=== PATIENT | female | born 1990 | race Caucasian/White ===

== ENCOUNTER 2019-09-28 12:05 | Inpatient (IN) | payer SELFPAY ==
[2019-09-28] MEDS ORDERED: Sodium Chloride 0.9% 10 ML Syringe FLUSH PRN (12:38)
[2019-09-28] MEDS ORDERED: Ondansetron 4 MG/2 ML SDV IVPUSH PRN ×2 (12:38→12:52)
[2019-09-28] MEDS ORDERED: Oxytocin 10 Units/1 ML SDV IM PRN (12:38)
[2019-09-28] MEDS ORDERED: Nalbuphine 10 MG/1 ML Vial IVPUSH PRN (12:38)
--- NOTE | 2019-09-28 12:41 | PCM.LDHP ---
L&D History of Present Illness - General Date of Service: 09/28/19 Admit Problem/Dx: Patient Status Order with Admit Dx/Problem 09/28/19 12:38 Patient Status [ADT] Routine Admission Diagnosis/Problem Admission Diagnosis/Problem Spontaneous rupture of amniotic membranes Source of Information: Patient History Limitations: Reports: No Limitations - History of Present Illness Introduction:: Patient is a 29 y/o at 41 2/7 wks who presents with SROM. Occurred at about 1000 this AM. Contractions started afterwards. Contractions mild- moderate overall. - Related Data Allergies/Adverse Reactions: Allergies Allergy/AdvReac Type Severity Reaction Status Date / Time No Known Allergies Allergy Verified 09/28/19 14:36 Past Medical History [employer] History: Reports: : 1 Para: 0 LMP (Approximate): - Past Surgical History HEENT Surgical History: Reports: Oral Surgery (wisdom tooth extraction) Social & Family History - Tobacco Use Smoking Status *Q: Never Smoker - Alcohol Use Alcohol Use History: No - Recreational Drug Use Recreational Drug Use: No H&P Review of Systems - Review of Systems: Review Of Systems: See Below General: Reports: No Symptoms Pulmonary: Reports: No Symptoms Cardiovascular: Reports: No Symptoms Gastrointestinal: Reports: No Symptoms Genitourinary: Reports: No Symptoms Musculoskeletal: Reports: No Symptoms Psychiatric: Reports: No Symptoms Neurological: Reports: No Symptoms L&D Exam - Exam Exam: See Below - OB Specific Contraction Intensity: Moderate Movement: Active Heart Tones: Present Heart Tones per Min: 135 Heart Rate (FHR) Variability: Moderate (6-25 bmp) Presentation: Vertex - Exam General: Alert, Oriented, Cooperative Lungs: Clear to Auscultation, Normal Respiratory Effort Cardiovascular: Regular Rate, Regular Rhythm GI/Abdominal Exam: Soft, Non-Tender Genitourinary: Normal external exam Extremities: Normal Inspection Skin: Warm, Dry, Intact - Patient Data Result Diagrams: 09/28/19 12:50 - Problem List (1) 41 weeks gestation of SNOMED Code(s): 12794557 ICD Code: Z3A.41 - 41 WEEKS GESTATION OF Status: Acute Current Visit: Yes (2) Spontaneous rupture of membranes SNOMED Code(s): 019927821 ICD Code: AHF0458 - Status: Acute Current Visit: Yes (3) Rubella non-immune status, antepartum SNOMED Code(s): 211282115 ICD Code: O99.89 - OTH DISEASES AND CONDITIONS COMPL PREG/CHLDBRTH; Z28.3 - UNDERIMMUNIZATION STATUS Status: Acute Current Visit: Yes Problem List Initiated/Reviewed/Updated: Yes Orders Last 24hrs: Active Orders 24 hr Category Date Time Status Patient Status [ADT] Routine ADT 09/28/19 12:38 Ordered Activity as Tolerated [RC] PFP Care 09/28/19 12:38 Ordered Communication Order [RC] ASDIRECTED Care 09/28/19 12:38 Ordered Heart Tones [RC] ASDIRECTED Care 09/28/19 12:39 Ordered Non Stress Test [RC] PER UNIT ROUTINE Care 09/28/19 12:38 Ordered Notify Provider [RC] PFP Care 09/28/19 12:38 Ordered Notify Provider [RC] PRN Care 09/28/19 12:38 Ordered Peripheral IV Care [RC] . DIRECTED Care 09/28/19 12:39 Ordered Vital Signs [RC] PER UNIT ROUTINE Care 09/28/19 12:38 Ordered CBC W/O DIFF,HEMOGRAM [HEME] Routine Lab 09/28/19 12:38 Ordered RAPID PLASMA REAGIN,RPR [CHEM] Routine Lab 09/28/19 12:38 Ordered TYPE AND SCREEN [BBK] Routine Lab 09/28/19 12:38 Ordered Lactated Ringers [Ringers, Lactated] 1,000 ml Med 09/28/19 12:45 Ordered IV ASDIRECTED Nalbuphine [Nubain] Med 09/28/19 12:38 Ordered 10 mg IVPUSH Q2H PRN Ondansetron [Zofran] Med 09/28/19 12:38 Ordered 4 mg IVPUSH Q4H PRN Oxytocin [Pitocin] Med 09/28/19 12:38 Ordered 10 unit IM ONETIME PRN Oxytocin/Lactated Ringers [Pitocin in LR 10 Units/1,000 Med 09/28/19 12:45 Ordered ML] 10 unit in 1,000 ml IV .CONTINUOUS Sodium Chloride 0.9% [Saline Flush] Med 09/28/19 12:38 Ordered 10 ml FLUSH ASDIRECTED PRN Electronic Heart Tones Ext w TOCO [WOMSER] Oth 09/28/19 12:38 Ordered Routine Electronic Heart Tones Internal [WOMSER] Per Unit Oth 09/28/19 12:38 Ordered Routine Peripheral IV Insertion Adult [OM.PC] Routine Oth 09/28/19 12:38 Ordered Resuscitation Status Routine Resus Stat 09/28/19 12:38 Ordered Assessment/Plan Comment:: * Labs * GBS negative * Pain management per patient preference * Anticipate
[2019-09-28] MEDS ORDERED: Lactated Ringers 1,000 ML IV SCH (12:45)
[2019-09-28] MEDS ORDERED: Oxytocin/Lactated Ringers 10 UNIT/1,000 ML BAG IV SCH (12:45)
[2019-09-28] MEDS ORDERED: fentaNYL 100 MCG/2 ML SDV EPIDUR PRN (12:52)
[2019-09-28] MEDS ORDERED: ePHEDrine 50 MG/ML SDV IVPUSH PRN (12:52)
[2019-09-28] MEDS ORDERED: fentaNYL/Bupivacaine/NS 2 MCG-0.125% 250 ML EPIDUR PRN (12:52)
--- NOTE | 2019-09-28 12:55 | PCM.PREANE ---
Preanesthetic Assessment - Anesthesia/Transfusion/Family Hx Anesthesia History: Prior Anesthesia Reaction Type of Anesthesia Reaction: Excessive Nausea/Vomiting Family History of Anesthesia Reaction: No Transfusion History: No Prior Transfusion(s) Intubation History: Unknown - Review of Systems General: No Symptoms Pulmonary: No Symptoms Cardiovascular: No Symptoms, Palpitations Gastrointestinal: No Symptoms Neurological: No Symptoms Other: Reports: None, Sinus Problem (sinus congestion) - Physical Assessment NPO Status Date: 09/28/19 NPO Status Time: 10:00 Vital Signs: Temp: 97.3F RR: 18 Sat: 100% HR: 83 BP: 124/65 Height: 1.73 m Weight: 76.657 kg ASA Class: 2 Mental Status: Alert & Oriented x3 Airway Class: Mallampati = 2 Dentition: Reports: Normal Dentition, Caries Thyro-Mental Finger Breadths: 3 Mouth Opening Finger Breadths: 3 ROM/Head Extension: Full Lungs: Clear to Auscultation, Normal Respiratory Effort Cardiovascular: Regular Rate, Regular Rhythm, No Murmurs - Lab Values: All labs reviewed and noted and within acceptable ranges to proceed with epidural if desired. - Anesthesia Plan Pre-Op Medication Ordered: None - Acknowledgements Anesthesia Type Planned: Spinal, Epidural Pt an Appropriate Candidate for the Planned Anesthesia: Yes Alternatives and Risks of Anesthesia Discussed w Pt/Guardian: Yes Pt/Guardian Understands and Agrees with Anesthesia Plan: Yes PreAnesthesia Questionnaire - CURRENT (IN HOUSE) MEDS Current Meds: Current Medications Ephedrine Sulfate (Ephedrine Sulfate) 5 mg IVPUSH ASDIRECTED PRN PRN Reason: Hypotension Fentanyl (Sublimaze) 100 mcg EPIDUR Q3H PRN PRN Reason: Pain Fentanyl/Bupivacaine HCl (Fentanyl/Bupivacaine/Ns 2 Mcg-0.125% 250 Ml) ml EPIDUR CONTINUOUS PRN PRN Reason: Pain Lactated Ringer's (Ringers, Lactated) 1,000 mls @ 100 mls/hr IV ASDIRECTED KIMBER Oxytocin/Lactated Ringer's (Pitocin In Lr 10 Units/1,000 Ml) 10 unit in 1,000 mls @ 500 mls/hr IV .CONTINUOUS KIMBER Phenylephrine HCl 1 mg/ Sodium (Chloride) 10.1 mls @ 1 mls/sec IV TITRATE KIMBER; Protocol Nalbuphine HCl (Nubain) 10 mg IVPUSH Q2H PRN PRN Reason: Pain Ondansetron HCl (Zofran) 4 mg IVPUSH Q4H PRN PRN Reason: Nausea/Vomiting Ondansetron HCl (Zofran) 4 mg IVPUSH ONETIME PRN PRN Reason: Nausea/Vomiting Oxytocin (Pitocin) 10 unit IM ONETIME PRN PRN Reason: Bleeding Sodium Chloride (Saline Flush) 10 ml FLUSH ASDIRECTED PRN PRN Reason: Keep Vein Open
[2019-09-28] MEDS ORDERED: Phenylephrine 1 MG in Sodium Chloride 0.9% 10 ML IV SCH (13:00)
--- NOTE | 2019-09-29 05:35 | PCM.PNLD ---
Labor Progress Note - VS & Meds Vital Signs: Last Vital Signs Temp 36.3 C 09/28/19 12:24 Pulse 83 09/28/19 12:24 Resp 18 09/28/19 12:24 BP 124/65 09/28/19 12:24 Pulse Ox 100 09/28/19 12:24 Active Medications: Current Medications Ephedrine Sulfate (Ephedrine Sulfate) 5 mg IVPUSH ASDIRECTED PRN PRN Reason: Hypotension Fentanyl (Sublimaze) 100 mcg EPIDUR Q3H PRN PRN Reason: Pain Fentanyl/Bupivacaine HCl (Fentanyl/Bupivacaine/Ns 2 Mcg-0.125% 250 Ml) 250 ml EPIDUR CONTINUOUS PRN PRN Reason: Pain Lactated Ringer's (Ringers, Lactated) 1,000 mls @ 100 mls/hr IV ASDIRECTED KIMBER Oxytocin/Lactated Ringer's (Pitocin In Lr 10 Units/1,000 Ml) 10 unit in 1,000 mls @ 500 mls/hr IV .CONTINUOUS KIMBER Phenylephrine HCl 1 mg/ Sodium (Chloride) 10.1 mls @ 1 mls/sec IV TITRATE KIMBER; Protocol Nalbuphine HCl (Nubain) 10 mg IVPUSH Q2H PRN PRN Reason: Pain Ondansetron HCl (Zofran) 4 mg IVPUSH Q4H PRN PRN Reason: Nausea/Vomiting Ondansetron HCl (Zofran) 4 mg IVPUSH ONETIME PRN PRN Reason: Nausea/Vomiting Oxytocin (Pitocin) 10 unit IM ONETIME PRN PRN Reason: Bleeding Sodium Chloride (Saline Flush) 10 ml FLUSH ASDIRECTED PRN PRN Reason: Keep Vein Open - Uterine Contractions Uterine Monitoring Mode: External [place] Contraction Intensity: Moderate - Monitoring Monitor Mode: External Ultrasound Heart Rate (FHR) Baseline: 140 Heart Rate (FHR) Variability: Moderate (6-25 bmp) Accelerations: Present, 15x15 Decelerations: Late (one isolated) Strip Review: Category II - Vaginal Exam Dilation (cm): 7-8 Effacement (Percent): 80 Station: 1 Cervical Position: Anterior - Labor Progress (Free Text) Labor Progress: doing well. Continues to make good change. Continue present management
[2019-09-29] MEDS ORDERED: Oxytocin/Lactated Ringers 10 UNIT/1,000 ML BAG IV SCH (14:15)
[2019-09-29] MEDS ORDERED: Lidocaine 1% 50 ML MDV ONE (19:32)
[2019-09-29] MEDS ORDERED: Lidocaine 1% 20 ML MDV INJECT ONE (21:00)
--- NOTE | 2019-09-29 21:44 | PCM.DEL ---
L & D Note - General Info Date of Service: 09/29/19 - Delivery Note Labor: Augmented by Oxytocin Delivery Outcome: Livebirth Delivery Method: Spontaneous Vaginal Delivery-Single Delivery Mode: Spontaneous Presentation: Right Occiput Anterior (CRYSTAL) Nuchal Cord: None Anesthesia Type: None Amniotic Fluid Description: Meconium Stained Episiotomy Type: None Laceration: 2nd Degree, Perineal Suture type: Vicryl Suture size: 2-0 Placenta: Intact, Spontaneous Cord: 3 Vessels Estimated Blood Loss: 200 Resuscitation Needed: Yes [place]: Bulb Syringe, Stimulated, Warmed, [place] Used, Warmer Used Score 1 min: 8 Score 5 min: 9 Delivery Comments (Free Text/Narrative):: Patient found to be complete and began pushing. With maternal pushing effort head delivered from CRYSTAL presentation. No nuchal cord present. With gentle downward traction shoulders and body delivered. Infant placed on maternal abdomen. Cord clamped and cut. Baby handed to awaiting bus operator. Cord blood obtained. Placenta allowed time to separate and expelled intact. Inspection of the perineum showed a 2nd degree laceration which was repaired with a 2-0 vicryl in the typical fashion. - General Info Date of Service: 09/29/19 - Patient Data Vitals - Most Recent: Last Vital Signs Temp 36.3 C 09/28/19 12:24 Pulse 83 09/28/19 12:24 Resp 18 09/28/19 12:24 BP 124/65 09/28/19 12:24 Pulse Ox 100 09/28/19 12:24 Weight - Most Recent: 76.657 kg - Problem List & Annotations (1) 41 weeks gestation of SNOMED Code(s): 09679810 Code(s): Z3A.41 - 41 WEEKS GESTATION OF Status: Acute Current Visit: Yes (2) Spontaneous rupture of membranes SNOMED Code(s): 493338534 Code(s): SPK1851 - Status: Acute Current Visit: Yes (3) Rubella non-immune status, antepartum SNOMED Code(s): 215889554 Code(s): O99.89 - OTH DISEASES AND CONDITIONS COMPL PREG/CHLDBRTH; Z28.3 - UNDERIMMUNIZATION STATUS Status: Acute Current Visit: Yes (4) Vaginal delivery SNOMED Code(s): 183963544 Code(s): O80 - ENCOUNTER FOR FULL-TERM UNCOMPLICATED DELIVERY Status: Acute Current Visit: Yes - Problem List Review Problem List Initiated/Reviewed/Updated: Yes - My Orders Last 24 Hours: My Active Orders 09/29/19 14:15 Oxytocin/Lactated Ringers [Pitocin in LR 10 Units/1,000 ML] 10 unit in 1,000 ml IV TITRATE - Assessment Assessment:: 29 y/o G1 now P1001 PPD#0 from at 41 3/7 wks - Plan Plan:: * Routine cares * Encourage breast feeding * Discharge home in 2 days
[2019-09-29] MEDS ORDERED: Acetaminophen 325 MG Tab PO PRN (23:13)
[2019-09-29] MEDS ORDERED: Witch Hazel Medicated Pads 40/Jar TOP PRN (23:13)
[2019-09-29] MEDS ORDERED: Docusate Sodium 100 MG Cap PO PRN (23:13)
[2019-09-29] MEDS ORDERED: Benzocaine/Menthol 20%-0.5% Spray 56 GM Canister TOP PRN (23:13)
[2019-09-29] MEDS ORDERED: Ibuprofen 600 MG Tab PO PRN (23:13)
--- NOTE | 2019-09-30 08:35 | PCM.PNPP ---
- General Info Date of Service: 09/30/19 Functional Status: Reports: Pain Controlled, Tolerating Diet, Ambulating, Urinating - Review of Systems General: Reports: No Symptoms Pulmonary: Reports: No Symptoms Cardiovascular: Reports: No Symptoms Gastrointestinal: Reports: Other (groin pain) Genitourinary: Reports: No Symptoms Musculoskeletal: Reports: No Symptoms Neurological: Reports: No Symptoms - Patient Data Vital Signs - Most Recent: Last Vital Signs Temp 37.1 C 09/30/19 03:31 Pulse 64 09/30/19 03:31 Resp 14 09/30/19 03:31 BP 109/84 09/30/19 03:31 Pulse Ox 98 09/30/19 03:31 Weight - Most Recent: 76.657 kg I&O - Last 24 Hours: Intake & Output 09/29/19 09/30/19 09/30/19 22:59 06:59 14:59 Intake Total 0 1150 Balance 0 1150 Med Orders - Current: Current Medications Acetaminophen (Tylenol) 650 mg PO Q4H PRN PRN Reason: mild pain or fever Benzocaine/Menthol (Dermoplast Pain Relief [place]) 0 gm TOP ASDIRECTED PRN PRN Reason: Perineal Comfort Measure Last Admin: 09/30/19 00:10 Dose: 1 can Docusate Sodium (Colace) 100 mg PO BID PRN PRN Reason: Constipation Ibuprofen (Motrin) 600 mg PO Q6H PRN PRN Reason: Mild pain or fever Witch Abena (Tucks) 1 pad TOP ASDIRECTED PRN PRN Reason: Perineal Comfort Measure Last Admin: 09/30/19 00:10 Dose: 1 container Discontinued Medications Ephedrine Sulfate (Ephedrine Sulfate) 5 mg IVPUSH ASDIRECTED PRN PRN Reason: Hypotension Fentanyl (Sublimaze) 100 mcg EPIDUR Q3H PRN PRN Reason: Pain Fentanyl/Bupivacaine HCl (Fentanyl/Bupivacaine/Ns 2 Mcg-0.125% 250 Ml) 250 ml EPIDUR CONTINUOUS PRN PRN Reason: Pain Lactated Ringer's (Ringers, Lactated) 1,000 mls @ 100 mls/hr IV ASDIRECTED KIMBER Last Admin: 09/29/19 14:17 Dose: 100 mls/hr Oxytocin/Lactated Ringer's (Pitocin In Lr 10 Units/1,000 Ml) 10 unit in 1,000 mls @ 500 mls/hr IV .CONTINUOUS KIMBER Phenylephrine HCl 1 mg/ Sodium (Chloride) 10.1 mls @ 1 mls/sec IV TITRATE KIMBER; Protocol Oxytocin/Lactated Ringer's (Pitocin In Lr 10 Units/1,000 Ml) 10 unit in 1,000 mls @ 6 mls/hr IV TITRATE KIMBER; Protocol Last Titration: 09/29/19 20:27 Dose: 12 munits/min, 72 mls/hr Lidocaine HCl (Xylocaine 1%) Confirm Administered Dose 50 ml .ROUTE .STK-MED ONE Stop: 09/29/19 19:33 Last Admin: 09/29/19 21:02 Dose: 50 ml Lidocaine HCl (Xylocaine 1%) 50 ml INJECT ONETIME ONE Stop: 09/29/19 21:01 Last Admin: 09/30/19 04:38 Dose: Not Given Nalbuphine HCl (Nubain) 10 mg IVPUSH Q2H PRN PRN Reason: Pain Ondansetron HCl (Zofran) 4 mg IVPUSH Q4H PRN PRN Reason: Nausea/Vomiting Ondansetron HCl (Zofran) 4 mg IVPUSH ONETIME PRN PRN Reason: Nausea/Vomiting Oxytocin (Pitocin) 10 unit IM ONETIME PRN PRN Reason: Bleeding Last Admin: 09/29/19 21:06 Dose: 10 unit Sodium Chloride (Saline Flush) 10 ml FLUSH ASDIRECTED PRN PRN Reason: Keep Vein Open - Interaction Infant Disposition, : [place] in Room with Family Interaction: Holding Infant Feeding: Attempted ; Nursed Fair/Poor Support Person: - Recovery Exam Fundal Tone: Firms with Massage Fundal Level: 2 Fingerbreadths Below Umbilicus Fundal Placement: Midline Lochia Amount: Small, Moderate Lochia Color: Rubra/Red Perineum Description: Edematous, Other (see below) Other Perinuem Description: 2nd degree laceration with repair Episiotomy/Laceration: Approximated Bladder Status: Voiding Urinary Elimination: Voided - Exam General: Alert, Oriented, Cooperative GI/Abdominal Exam: Soft, Non-Tender Extremities: Normal Inspection Skin: Warm, Dry, Intact - Problem List & Annotations (1) 41 weeks gestation of SNOMED Code(s): 07602855 Code(s): Z3A.41 - 41 WEEKS GESTATION OF Status: Acute Current Visit: Yes (2) Spontaneous rupture of membranes SNOMED Code(s): 025562241 Code(s): NCK1804 - Status: Acute Current Visit: Yes (3) Rubella non-immune status, antepartum SNOMED Code(s): 871553075 Code(s): O99.89 - OTH DISEASES AND CONDITIONS COMPL PREG/CHLDBRTH; Z28.3 - UNDERIMMUNIZATION STATUS Status: Acute Current Visit: Yes (4) Vaginal delivery SNOMED Code(s): 437796032 Code(s): O80 - ENCOUNTER FOR FULL-TERM UNCOMPLICATED DELIVERY Status: Acute Current Visit: Yes - Problem List Review Problem List Initiated/Reviewed/Updated: Yes - My Orders Last 24 Hours: My Active Orders 09/29/19 23:13 Activity as Tolerated [RC] PER UNIT ROUTINE Vital Signs [RC] 03,09,15,21 Acetaminophen [Tylenol] 650 mg PO Q4H PRN Benzocaine/Menthol [Dermoplast Pain Relief [place]] See Dose Instructions TOP ASDIRECTED PRN Docusate Sodium [Colace] 100 mg PO BID PRN Ibuprofen [Motrin] 600 mg PO Q6H PRN Witch Abena [Tucks] 1 pad TOP ASDIRECTED PRN Assess Lochia [WOMSER] Per Unit Routine Assess Uterine Involution [WOMSER] Per Unit Routine Breast Pump [WOMSER] Per Unit Routine Heat Therapy [OM.PC] PRN Ice Therapy [OM.PC] Per Unit Routine Perineal Care [OM.PC] Per Unit Routine Peripheral IV Discontinue [OM.PC] Routine Sitz Bath [OM.PC] Per Unit Routine 09/29/19 Dinner Regular Diet [DIET] 09/30/19 23:13 Heat Therapy [OM.PC] PRN - Assessment Assessment:: 29 y/o G1 now P1001 PPD#1 from at 41 3/7 wks - Plan Plan:: * Routine cares * Encourage breast feeding * Discharge home tomorrow
--- NOTE | 2019-10-01 06:55 | PCM.DCSUM1 ---
Discharge Summary - Hospital Course Diagnosis: Stroke: No - Discharge Data Discharge Date: 10/01/19 Discharge Disposition: Home, Self-Care 01 Condition: Good - Referral to Home Health Primary Care Physician: Trice Aparicio MD - Patient Instructions Diet: Usual Diet as Tolerated Activity: No Strenuous Activities Activity, Other: pelvic rest Driving: May Drive Today Showering/Bathing: May Shower Notify Provider of: Fever, Increased Pain, Swelling and Redness, Drainage, Nausea and/or Vomiting - Discharge Plan *PRESCRIPTION DRUG MONITORING PROGRAM REVIEWED*: No *COPY OF PRESCRIPTION DRUG MONITORING REPORT IN PATIENT JANETH: No Referrals: Trice Aparicio MD [Primary Care Provider] - (2 weeks) - Discharge Summary/Plan Comment DC Time >30 min.: No - General Info Date of Service: 10/01/19 Functional Status: Reports: Pain Controlled - Review of Systems General: Reports: No Symptoms HEENT: Reports: No Symptoms Pulmonary: Reports: No Symptoms Cardiovascular: Reports: No Symptoms Gastrointestinal: Reports: No Symptoms Genitourinary: Reports: No Symptoms Musculoskeletal: Reports: No Symptoms Skin: Reports: No Symptoms Neurological: Reports: No Symptoms Psychiatric: Reports: No Symptoms - Patient Data Vitals - Most Recent: Last Vital Signs Temp 36.5 C 10/01/19 03:18 Pulse 71 10/01/19 03:18 Resp 14 10/01/19 03:18 BP 102/57 L 10/01/19 03:18 Pulse Ox 99 10/01/19 03:18 Weight - Most Recent: 76.657 kg I&O - Last 24 hours: Intake & Output 09/30/19 09/30/19 10/01/19 14:59 22:59 06:59 Intake Total 120 120 Balance 120 120 Med Orders - Current: Current Medications Acetaminophen (Tylenol) 650 mg PO Q4H PRN PRN Reason: mild pain or fever Benzocaine/Menthol (Dermoplast Pain Relief [place]) 0 gm TOP ASDIRECTED PRN PRN Reason: Perineal Comfort Measure Last Admin: 09/30/19 00:10 Dose: 1 can Docusate Sodium (Colace) 100 mg PO BID PRN PRN Reason: Constipation Ibuprofen (Motrin) 600 mg PO Q6H PRN PRN Reason: Mild pain or fever Witch Abena (Tucks) 1 pad TOP ASDIRECTED PRN PRN Reason: Perineal Comfort Measure Last Admin: 09/30/19 00:10 Dose: 1 container Discontinued Medications Ephedrine Sulfate (Ephedrine Sulfate) 5 mg IVPUSH ASDIRECTED PRN PRN Reason: Hypotension Fentanyl (Sublimaze) 100 mcg EPIDUR Q3H PRN PRN Reason: Pain Fentanyl/Bupivacaine HCl (Fentanyl/Bupivacaine/Ns 2 Mcg-0.125% 250 Ml) 250 ml EPIDUR CONTINUOUS PRN PRN Reason: Pain Lactated Ringer's (Ringers, Lactated) 1,000 mls @ 100 mls/hr IV ASDIRECTED KIMBER Last Admin: 09/29/19 14:17 Dose: 100 mls/hr Oxytocin/Lactated Ringer's (Pitocin In Lr 10 Units/1,000 Ml) 10 unit in 1,000 mls @ 500 mls/hr IV .CONTINUOUS KIMBER Phenylephrine HCl 1 mg/ Sodium (Chloride) 10.1 mls @ 1 mls/sec IV TITRATE KIMBER; Protocol Oxytocin/Lactated Ringer's (Pitocin In Lr 10 Units/1,000 Ml) 10 unit in 1,000 mls @ 6 mls/hr IV TITRATE KIMBER; Protocol Last Titration: 09/29/19 20:27 Dose: 12 munits/min, 72 mls/hr Lidocaine HCl (Xylocaine 1%) Confirm Administered Dose 50 ml .ROUTE .STK-MED ONE Stop: 09/29/19 19:33 Last Admin: 09/29/19 21:02 Dose: 50 ml Lidocaine HCl (Xylocaine 1%) 50 ml INJECT ONETIME ONE Stop: 09/29/19 21:01 Last Admin: 09/30/19 04:38 Dose: Not Given Nalbuphine HCl (Nubain) 10 mg IVPUSH Q2H PRN PRN Reason: Pain Ondansetron HCl (Zofran) 4 mg IVPUSH Q4H PRN PRN Reason: Nausea/Vomiting Ondansetron HCl (Zofran) 4 mg IVPUSH ONETIME PRN PRN Reason: Nausea/Vomiting Oxytocin (Pitocin) 10 unit IM ONETIME PRN PRN Reason: Bleeding Last Admin: 09/29/19 21:06 Dose: 10 unit Sodium Chloride (Saline Flush) 10 ml FLUSH ASDIRECTED PRN PRN Reason: Keep Vein Open - Exam General: Reports: Alert, Oriented HEENT: Reports: Pupils Equal, Pupils Reactive, EOMI, Mucous Membr. Moist/[place] Neck: Reports: Supple Lungs: Reports: Clear to Auscultation, Normal Respiratory Effort Cardiovascular: Reports: Regular Rate, Regular Rhythm GI/Abdominal Exam: Normal Bowel Sounds, Soft, Non-Tender, No Organomegaly, No Distention, No Abnormal Bruit, No Mass, Pelvis Stable Rectal (Female) Exam: Normal Exam, Normal Rectal Tone Back Exam: Reports: Normal Inspection, Full Range of Motion Extremities: Normal Inspection, Normal Range of Motion, Non-Tender, No Pedal Edema, Normal Capillary Refill Skin: Reports: Warm, Dry, Intact Wound/Incisions: Reports: Healing Well Neurological: Reports: No New Focal Deficit Psy/Mental Status: Reports: Alert, Normal Affect, Normal Mood
== END 2019-10-01 10:15 | disposition home or self-care (01) | DRG 807 ==
LOC: JD.OBCHECK 12:05 → JD.OB 12:09 → JD.OBCHECK 12:38 → OBSVTOIN 09-29 20:43 → JD.MS 09-29 20:44 → JD.OB 09-30 00:54
PROVIDERS: ADMIT Obstetrics & Gynecology; ATTEND Obstetrics & Gynecology
PROC: 10E0XZZ Delivery of Products of Conception, External Approach (ICD-10-PCS; principal; 2019-09-29)
PROC: 0KQM0ZZ Repair Perineum Muscle, Open Approach (ICD-10-PCS; 2019-09-29)
DX: O48.0 Post-term pregnancy (principal); Z37.0 Single live birth; O77.0 Labor and delivery complicated by meconium in amniotic fluid; O70.1 Second degree perineal laceration during delivery; Z3A.41 41 weeks gestation of pregnancy
CPT/HCPCS: 36415; 59025; 59409; 85027; 86592; 86850; 86900; 86901; A9270-GY; J2001; J2590; J7120

== ENCOUNTER 2022-04-28 02:44 | Inpatient (IN) | payer SELFPAY ==
[2022-04-28] MEDS ORDERED: Oxytocin 10 Units/1 ML SDV IM ONE (05:10)
[2022-04-28] MEDS ORDERED: Nalbuphine HCl 10 MG/ 1ML Amp IVPUSH PRN (05:10)
[2022-04-28] MEDS ORDERED: Sodium Chloride 0.9% 10 ML Syringe FLUSH PRN (05:10)
[2022-04-28] MEDS ORDERED: Oxytocin/Lactated Ringers 10 UNIT/1,000 ML BAG IV SCH (05:15)
[2022-04-28] MEDS ORDERED: Lactated Ringers 1,000 ML IV SCH (05:15)
[2022-04-28] MEDS ORDERED: Lidocaine 1% 50 ML MDV ONE (06:47)
[2022-04-28] MEDS ORDERED: Sodium Chloride 0.9% 10 ML Syringe FLUSH SCH (09:00)
[2022-04-28] MEDS ORDERED: Benzocaine/Menthol 20%-0.5% Spray 78 GM Cannister TOP PRN (15:30)
[2022-04-28] MEDS ORDERED: Ibuprofen 600 MG Tab PO PRN (15:30)
[2022-04-28] MEDS ORDERED: Acetaminophen 325 MG Tab PO PRN (15:30)
[2022-04-28] MEDS ORDERED: Witch Hazel Medicated Pads 40/Jar TOP PRN (15:30)
[2022-04-28] MEDS ORDERED: Docusate Sodium 100 MG Cap PO PRN (15:30)
[2022-04-29] MEDS: Prenatal Multivitamin with Calcium/Folic Acid/Iron Tab PO SCH ×2 (07:14→11:39)
== END 2022-04-29 11:08 | disposition home or self-care (01) | DRG 806 ==
LOC: JD.OBCHECK 02:44 → JD.OB 02:47 → JD.OBCHECK 05:10 → JD.OB 05:11 → OBSVTOIN 06:38 → JD.MS 06:39 → JD.OB 10:58
PROVIDERS: ADMIT Obstetrics & Gynecology; ATTEND Obstetrics & Gynecology
PROC: 10E0XZZ Delivery of Products of Conception, External Approach (ICD-10-PCS; principal; 2022-04-28)
PROC: 0UQG7ZZ Repair Vagina, Via Natural or Artificial Opening (ICD-10-PCS; 2022-04-28)
PROC: 0HQ9XZZ Repair Perineum Skin, External Approach (ICD-10-PCS; 2022-04-28)
DX: O48.0 Post-term pregnancy (principal); O71.4 Obstetric high vaginal laceration alone; Z37.0 Single live birth; Z3A.41 41 weeks gestation of pregnancy
CPT/HCPCS: 59025; J2001; J2590